=== PATIENT | female | born 1945 | race Caucasian/White ===

== ENCOUNTER 2019-05-12 11:24 | Emergency (ER) | payer MEDICARE ==
[~2019-05-12] VITALS: Ht 152.4 cm; Wt 57.3 kg
[2019-05-12] MEDS ORDERED: ACETAMINOPHEN 500 MG TABLET PO ONE (13:45)
[2019-05-12 13:50] VITALS: BP 134/78
== END 2019-05-12 13:52 | disposition home or self-care (01) ==
LOC: EMS 11:27
DX: S50.11XA Contusion of right forearm, initial encounter (principal); W11.XXXA Fall on and from ladder, initial encounter; Y93.39 Activity, other involving climbing, rappelling and jumping off; Y92.89 Other specified places as the place of occurrence of the external cause; Y99.8 Other external cause status